=== PATIENT | male | born 1985 | race American Indian/Alaskan Native ===

== ENCOUNTER 2018-12-28 10:10 | Emergency (ER) | payer OTHER ==
[2018-12-28 10:15] VITALS: BP 142/88
--- NOTE | 2018-12-28 10:45 | Emergency Department Report ---
ED ENT HPI - General Chief complaint: Dental/Oral Stated complaint: MOUTH PAIN Time Seen by Provider: 12/28/18 10:39 Source: patient Mode of arrival: Ambulatory Limitations: No Limitations - History of Present Illness Initial comments: Patient states that about 2 days ago he had a procedure done on his teeth. He is not sure what procedure was but it did not include obstruction. Patient states that the surgery was 2 days ago and he is now having some swelling to the right jaw. Patient states the pain is 8 out of 10 in severity. He was only given ibuprofen. Patient states that he has no difficulty swallowing or fever. Pain is worse with opening closing the mouth and with chewing. - Related Data Previous Rx's Medication Instructions Recorded Last Taken Type Clindamycin [Clindamycin CAP] 300 mg PO Q8H #21 cap 12/28/18 Unknown Rx traMADol [Ultram] 50 mg PO Q6HR PRN #12 tablet 12/28/18 Unknown Rx Allergies Allergy/AdvReac Type Severity Reaction Status Date / Time No Known Allergies Allergy Unverified 12/28/18 10:15 ED Dental HPI - General Chief complaint: Dental/Oral Stated complaint: MOUTH PAIN Time Seen by Provider: 12/28/18 10:39 Source: patient Mode of arrival: Ambulatory Limitations: No Limitations - Related Data Previous Rx's Medication Instructions Recorded Last Taken Type Clindamycin [Clindamycin CAP] 300 mg PO Q8H #21 cap 12/28/18 Unknown Rx traMADol [Ultram] 50 mg PO Q6HR PRN #12 tablet 12/28/18 Unknown Rx Allergies Allergy/AdvReac Type Severity Reaction Status Date / Time No Known Allergies Allergy Unverified 12/28/18 10:15 ED Review of Systems ROS: Stated complaint: MOUTH PAIN Other details as noted in HPI Comment: All other systems reviewed and negative ED Past Medical Hx - Past Medical History Previous Medical History?: No - Surgical History Past Surgical History?: No - Social History Smoking Status: Never Smoker Substance Use Type: None - Medications Home Medications: Home Medications Medication Instructions Recorded Confirmed Last Taken Type Clindamycin [Clindamycin CAP] 300 mg PO Q8H #21 cap 12/28/18 Unknown Rx traMADol [Ultram] 50 mg PO Q6HR PRN #12 tablet 12/28/18 Unknown Rx ED Physical Exam - General Limitations: No Limitations General appearance: alert, in no apparent distress - Head Head exam: Present: atraumatic, normocephalic - Expanded Head Exam Expanded 1 - Patient with swelling and tenderness to palpation to the angle of the right jaw. 2 - In the inner upper lip centrally the patient has what appears to be a contusion. - Eye Eye exam: Present: normal appearance - ENT ENT exam: Present: mucous membranes moist - Neck Neck exam: Present: normal inspection - Respiratory Respiratory exam: Absent: respiratory distress - Cardiovascular Cardiovascular Exam: Present: regular rate, normal rhythm - Rectal Rectal exam: Present: deferred - Extremities Exam Extremities exam: Present: normal inspection - Back Exam Back exam: Present: normal inspection - Neurological Exam Neurological exam: Present: alert, oriented X3 - Psychiatric Psychiatric exam: Present: normal affect, normal mood - Skin Skin exam: Present: warm, dry, intact, normal color. Absent: rash ED Course Vital Signs 12/28/18 10:13 Temperature 98.7 F Pulse Rate 74 Respiratory 18 Rate Blood Pressure 142/88 O2 Sat by Pulse 99 Oximetry ED Medical Decision Making - Medical Decision Making Patient appears to have a right sided facial cellulitis. Patient will be started on antibiotics and given medication for pain control. Critical care attestation.: If time is entered above; I have spent that time in minutes in the direct care of this critically ill patient, excluding procedure time. ED Disposition Clinical Impression: Facial cellulitis Disposition: TO HOME OR SELFCARE Is pt being admited?: No Does the pt Need Aspirin: No Condition: Stable Instructions: Cellulitis (ED) Time of Disposition: 10:45
== END 2018-12-28 10:55 | disposition home or self-care (01) ==
LOC: ED 10:10
DX: L03.211 Cellulitis of face (principal); Z79.899 Other long term (current) drug therapy